=== PATIENT | male | born 1985 | race American Indian/Alaskan Native ===

== ENCOUNTER 2017-03-15 15:30 | Emergency (ER) | payer MEDICAID, OTHER ==
[2017-03-15 15:45] VITALS: BMI 17.1
[2017-03-15 15:46] VITALS: BP 111/64; PULSE 79; TEMP 98.8; O2SAT 99
[2017-03-15] MEDS ORDERED: Amoxicillin-Clav 875-125 mg Tab PO STA (16:12)
--- NOTE | 2017-03-15 16:15 | C.PDOC ---
History Of Present Illness 31 yo male come in for evaluation of malaise, sore throat, difficulty swallow developed since last night. Otherwise, pt denies fever, chills, headache, dizziness, drooling, stridor, cough, SOB, wheezing, abd. pain, N/V/D, back pain , denies recent travel or sick contact. Ambulate to Ed for evaluation, not in any apparent distress. Time Seen by Provider: 03/15/17 16:04 Chief Complaint (Nursing): ENT Problem History Per: Patient Onset/Duration Of Symptoms: Gradual Past Medical History Reviewed: Historical Data, Nursing Documentation, Vital Signs Vital Signs: Last Vital Signs Temp 98.8 F 03/15/17 15:45 Pulse 79 03/15/17 15:45 Resp 20 03/15/17 16:28 BP 111/64 03/15/17 15:45 Pulse Ox 99 03/15/17 16:21 - Medical History PMH: No Chronic Diseases Surgical History: No Surg Hx Family History: States: No Known Family Hx - Social History Hx Tobacco Use: Yes Hx Alcohol Use: Yes Hx Substance Use: No - Immunization History Hx Tetanus Toxoid Vaccination: No Hx Influenza Vaccination: No Hx Pneumococcal Vaccination: No Review Of Systems Except As Marked, All Systems Reviewed And Found Negative. Constitutional: Positive for: Malaise. Negative for: Fever, Chills ENT: Positive for: Nose Congestion, Throat Pain, Throat Swelling. Negative for : Ear Discharge, Nose Discharge Respiratory: Negative for: Cough, Shortness of Breath, Wheezing Gastrointestinal: Negative for: Nausea, Vomiting, Abdominal Pain, Diarrhea Genitourinary: Negative for: Dysuria Musculoskeletal: Negative for: Neck Pain Skin: Negative for: Rash Neurological: Negative for: Weakness, Numbness, Altered Mental Status, Headache , Dizziness Physical Exam - Physical Exam Appears: Well, No Acute Distress Skin: Normal Color, Warm, Dry, No Rash Eye(s): bilateral: PERRL Ear(s): Bilateral: Normal Nose: No Flaring, Other (B/L nasal congestion) Oral Mucosa: Moist, No Drooling Tongue: Normal Appearing Lips: Normal Appearing Throat: Erythema (moderate with mild edema), No Exudate, No Drooling, Other ( Left tonsilar edema and erythema with scant exudate. Uvula midline, no edema.) Neck: Supple Cardiovascular: Rhythm Regular Respiratory: No Stridor, No Wheezing Gastrointestinal/Abdominal: Soft, No Tenderness, No Distention, No Guarding Back: No CVA Tenderness Extremity: No Pedal Edema, No Deformity Neurological/Psych: Oriented x3, Normal Speech ED Course And Treatment O2 Sat by Pulse Oximetry: 99 Pulse Ox Interpretation: Normal Progress Note: On re-evaluation, pt is afebrile, hemodynamicaly stable. NOn- toxic. Tolerate Po well in ED. Pulse Ox 99% RA. neck: (-) meningeal sign. ENT : exam c/w acute tonsillitis. uvula midline, no edema. Lungs: CTA B/L, BS equal B/L. Abd: benign. Pt advised and ref. to F/u with PMD, ENT in 2-3 days for re-eavl. return if any new changes. Disposition Counseled Patient/Family Regarding: Diagnosis, Need For Followup, Rx Given - Disposition Referrals: [facility] at [facility] [Outside] Gavin Anna MD [Staff Provider] - Disposition: HOME/ ROUTINE Disposition Time: 16:19 Condition: STABLE Additional Instructions: Encourage fluids Warm salty water throat gurgles Take medication as prescribed Follow up with PMD, ENT in 2-3 days for re-evaluation. return to ED if any worsening or new changes. Prescriptions: Amoxicillin/Clavulanate [Augmentin 875 MG-125 MG] 1 tab PO BID #14 tab Ibuprofen [Motrin] 1 tab PO TID PRN #30 tab PRN Reason: Pain Prednisone [Deltasone] 20 mg PO DAILY #3 tablet Instructions: Pharyngitis (ED) - Clinical Impression Clinical Impression: Tonsillitis
[2017-03-15] MEDS ORDERED: Amoxicillin-Clav 875-125 mg Tab PO ONE (16:23)
[2017-03-15 16:29] VITALS: RESP 20
== END 2017-03-15 16:28 | disposition home or self-care (01) ==
LOC: C.ER 15:30
DX: J03.90 Acute tonsillitis, unspecified (principal)

== ENCOUNTER 2017-07-25 17:38 | Emergency (ER) | payer MEDICAID, OTHER ==
[2017-07-25 17:38] VITALS: BMI 17.1
--- NOTE | 2017-07-25 18:16 | C.PDOC ---
History Of Present Illness 31 year old male, with no significant PMHx, presents to the ED for evaluation of right-sided chest and back pain which began last night. Patient states his symptoms are constant and worse with movement, deep inspiration and when coughing. Patient also reports shortness of breath on exertion. Today, patient developed fever and generalized body aches and presents for further evaluation. Patient denies recent trauma/injury, nausea, extremity numbness/weakness. Time Seen by Provider: 07/25/17 17:53 Chief Complaint (Nursing): Chest Pain History Per: Patient History/Exam Limitations: no limitations Onset/Duration Of Symptoms: Hrs Current Symptoms Are (Timing): Still Present Quality: "Pain" Associated Symptoms: denies: Nausea Exacerbating Factors: Movement, Deep Breathing, Exertion, Other (cough) Additional History Per: Patient Past Medical History Reviewed: Historical Data, Nursing Documentation, Vital Signs Vital Signs: Last Vital Signs Temp 99.1 F 07/25/17 22:42 Pulse 78 07/25/17 22:42 Resp 18 07/25/17 22:42 BP 97/56 L 07/25/17 22:42 Pulse Ox 97 07/25/17 22:42 - Medical History PMH: No Chronic Diseases Surgical History: No Surg Hx Family History: States: Unknown Family Hx - Social History Hx Tobacco Use: Yes Hx Alcohol Use: Yes Hx Substance Use: No - Immunization History Hx Tetanus Toxoid Vaccination: No Hx Influenza Vaccination: No Hx Pneumococcal Vaccination: No Review Of Systems Constitutional: Positive for: Fever Cardiovascular: Positive for: Chest Pain (right-sided) Respiratory: Positive for: SOB with Excertion Gastrointestinal: Negative for: Nausea Musculoskeletal: Positive for: Back Pain (right-sided), Other (generalized body aches ) Neurological: Negative for: Weakness, Numbness Physical Exam - Physical Exam Appears: Non-toxic, No Acute Distress Skin: Normal Color, Warm, Dry Head: Atraumatic, Normacephalic Eye(s): bilateral: Normal Inspection Oral Mucosa: Moist Neck: Supple Chest: Symmetrical, No Deformity, No Tenderness Cardiovascular: Rhythm Regular, No Murmur, Other (tachycardia ) Respiratory: Normal Breath Sounds, No Rales, No Rhonchi, No Wheezing Back: Normal Inspection, No Vertebral Tenderness, No Paraspinal Tenderness Extremity: Normal ROM, Capillary Refill (less than 2 seconds ) Neurological/Psych: Oriented x3, Normal Speech, Normal Cognition Gait: Steady ED Course And Treatment - Laboratory Results Result Diagrams: 07/25/17 18:25 07/25/17 18:25 Lab Interpretation: Normal (Rapid flu negative) ECG: Interpreted By Me ECG Rhythm: Sinus Rhythm, Nonspecific Changes ECG Interpretation: No Acute Changes O2 Sat by Pulse Oximetry: 98 (on RA) Pulse Ox Interpretation: Normal - Radiology CXR: Interpreted by Me CXR Interpretation: Yes: No Acute Disease - CT Scan/US CT Angio Chest Other Rad Studies (CT/US): Interpreted By Me, Read By Radiologist, Radiology Report Reviewed CT/US Interpretation: EXAM: CT Angiography Chest With Intravenous Contrast. CLINICAL HISTORY: 31 years old, male; Signs and symptoms; Other: Chest pain; Additional info: Chest pain with fever. TECHNIQUE: Axial computed tomographic angiography images of the chest with intravenous contrast using. pulmonary embolism protocol. All CT scans at this facility use one or more dose reduction. techniques, viz.: automated exposure control; ma/kV adjustment per patient size (including targeted. exams where dose is matched to indication; i.e. head); or iterative reconstruction technique. MIP reconstructed images were created and reviewed. Coronal and sagittal reformatted images were created and reviewed. CONTRAST: 100 mL of VISIPAQUE 320 administered intravenously. COMPARISON: No relevant prior studies available. FINDINGS: Pulmonary arteries: No pulmonary embolism. Aorta: No thoracic aortic aneurysm. Lungs: No mass. No consolidation. Pleural spaces: No significant effusion. No pneumothorax. Heart: No cardiomegaly. No significant pericardial effusion. No evidence of right heart dysfunction. Bones: No acute fracture. Lymph nodes : No pathologically enlarged lymph nodes. IMPRESSION: No pulmonary embolism. The lungs are clear. Progress Note: Bloodwork, CXR, EKG, ordered and reviewed. 9:30 Patient spiked fever to 102.9. BP 96/56. Tylenol, IV fluids ordered. Reevaluation Time: 22:04 Reassessment Condition: Improved (better after Tylenol and fluid. Lungs remain clear and he has no respiratory symptoms.) Disposition Counseled Patient/Family Regarding: Studies Performed, Diagnosis, Need For Followup - Disposition Referrals: [facility] at [facility] [Outside] Disposition: HOME/ ROUTINE Disposition Time: 22:46 Condition: IMPROVED Instructions: Fever in Adults (ED), Noncardiac Chest Pain (ED) Forms: [employer] (Andorran) - Clinical Impression Clinical Impression: Pleuritic pain, Fever - Scribe Statement The provider has reviewed the documentation as recorded by the Scribe (Emily Morel) Provider Attestation: All medical record entries made by the Scribe were at my direction and personally dictated by me. I have reviewed the chart and agree that the record accurately reflects my personal performance of the history, physical exam, medical decision making, and the department course for this patient. I have also personally directed, reviewed, and agree with the discharge instructions and disposition.
[2017-07-25 18:32] LABS: BASO # 0.1 K/uL (0.0-0.2); EOS # 0.3 K/uL (0.0-0.7); EOS % 3.4 % (0.0-4.0); HEMATOCRIT 44.4 % (35.0-51.0); LYMPH % 10.2 % (20.0-40.0); MEAN CORPUSCULAR HEMOGLOBIN 28.4 pg (27.0-31.0); MEAN CORPUSCULAR HGB CONC 33.4 g/dL (33.0-37.0); MEAN PLATELET VOLUME 8.7 fL (7.2-11.7); MONO % 10.5 % (0.0-10.0); RED CELL DISTRIBUTION WIDTH 13.8 % (11.5-14.5)
[2017-07-25 18:35] LABS: MEAN CELL VOLUME 85.1 fL (80.0-94.0); WHITE BLOOD COUNT 9.4 K/uL (4.8-10.8)
[2017-07-25 18:40] LABS: CHLORIDE 99 mmol/L (98-107); POTASSIUM 5.1 mmol/L (3.6-5.2); SODIUM 133 mmol/L (132-148)
[2017-07-25 18:42] LABS: BILIRUBIN,TOTAL 0.7 mg/dL (0.2-1.3); CARBON DIOXIDE 25 mmol/L (22-30); GFR AFRICAN-AMERICAN > 60
[2017-07-25 18:43] LABS: ALB/GLOB RATIO 1.1 (1.0-2.1); ALKALINE PHOSPHATASE 68 U/L (38-126); ALT/SGPT 34 U/L (21-72); AST/SGOT 31 U/L (17-59); BLOOD UREA NITROGEN 9 mg/dL (9-20); CALCIUM 9.3 mg/dl (8.6-10.4); GLUCOSE,RANDOM 75 mg/dL (75-110); TOTAL PROTEIN 8.5 g/dL (6.3-8.3)
[2017-07-25] MEDS ORDERED: Iodixanol 320 MG/ML 200 ML BOTTLE IV ONE (19:48)
--- NOTE | 2017-07-25 21:31 | CT ---
EXAM: CT Angiography Chest With Intravenous Contrast CLINICAL HISTORY: 31 years old, male; Signs and symptoms; Other: Chest pain; Additional info: Chest pain with fever TECHNIQUE: Axial computed tomographic angiography images of the chest with intravenous contrast using pulmonary embolism protocol. All CT scans at this facility use one or more dose reduction techniques, viz.: automated exposure control; ma/kV adjustment per patient size (including targeted exams where dose is matched to indication; i.e. head); or iterative reconstruction technique. MIP reconstructed images were created and reviewed. Coronal and sagittal reformatted images were created and reviewed. CONTRAST: 100 mL of VISIPAQUE 320 administered intravenously. COMPARISON: No relevant prior studies available. FINDINGS: Pulmonary arteries: No pulmonary embolism. Aorta: No thoracic aortic aneurysm. Lungs: No mass. No consolidation. Pleural spaces: No significant effusion. No pneumothorax. Heart: No cardiomegaly. No significant pericardial effusion. No evidence of right heart dysfunction. Bones: No acute fracture. Lymph nodes: No pathologically enlarged lymph nodes. IMPRESSION: No pulmonary embolism. The lungs are clear.
[2017-07-25 21:34] VITALS: RESP 18
[2017-07-25] MEDS ORDERED: Sodium Chloride 0.9% 1,000 ML ONE (21:38)
[2017-07-25] MEDS ORDERED: Sodium Chloride 0.9% 1,000 ML IV ONE (21:40)
[2017-07-25 22:43] VITALS: BP 97/56; PULSE 78; TEMP 99.1
[2017-07-25 22:48] VITALS: O2SAT 98
--- NOTE | 2017-07-26 09:00 | RAD ---
HISTORY: Pneumonia COMPARISON: 06/24/2015 TECHNIQUE: Chest PA and lateral FINDINGS: LUNGS: No active pulmonary disease. PLEURA: No significant pleural effusion identified. No pneumothorax apparent. CARDIOVASCULAR: Normal. OSSEOUS STRUCTURES: No significant abnormalities. VISUALIZED UPPER ABDOMEN: Normal. OTHER FINDINGS: None. IMPRESSION: No active disease.
== END 2017-07-25 22:58 | disposition home or self-care (01) ==
LOC: C.ER 17:38
DX: R07.81 Pleurodynia (principal); R50.9 Fever, unspecified
CPT/HCPCS: 71020; 71275; 80053; 85025; 85378; 87040; 87804; 96360; 99285; J7040; Q9966

== ENCOUNTER 2018-03-01 16:50 | Emergency (ER) | payer SELFPAY ==
[2018-03-01 16:50] VITALS: BMI 17.1
[2018-03-01 17:04] VITALS: RESP 16; O2SAT 100
--- NOTE | 2018-03-01 18:38 | C.PDOC ---
History Of Present Illness 32 y/o male presents to the ED for evaluation of a "breakout" to his hands which began 2 days ago. He notes the area was initially painful, but has now progressed to itchiness. Notes it started onhis hands but also notes some on knees and one on chest. Denies anyone else in the household having similar rash. 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 No known allergens including food or medication. He denies fever, difficulty breathing, difficulty swallowing, lip or tongue swelling, fever, or n/v. Patient applied hydrocortisone cream with no relief. Time Seen by Provider: 03/01/18 17:44 Chief Complaint (Nursing): Abnormal Skin Integrity History Per: Patient History/Exam Limitations: no limitations Onset/Duration Of Symptoms: Days Current Symptoms Are (Timing): Still Present Quality Of Symptoms: Itching Additional History Per: Patient Past Medical History Reviewed: Historical Data, Nursing Documentation, Vital Signs Vital Signs: Last Vital Signs Temp 98.4 F 03/01/18 18:54 Pulse 70 03/01/18 18:54 Resp 16 03/01/18 18:54 BP 116/64 03/01/18 18:54 Pulse Ox 100 03/01/18 20:29 - Medical History PMH: No Chronic Diseases Surgical History: No Surg Hx Family History: States: Unknown Family Hx - Social History Hx Tobacco Use: Yes Hx Alcohol Use: Yes Hx Substance Use: No - Immunization History Hx Tetanus Toxoid Vaccination: No Hx Influenza Vaccination: No Hx Pneumococcal Vaccination: No Physical Exam - Physical Exam Appears: Non-toxic, No Acute Distress Skin: Warm, Dry, Other (skin-colored macules and papules primarlily on right hand though one to chest, two to right knee. no erythema, vesicles, urticaria, or discharge) Head: Atraumatic, Normacephalic Eye(s): bilateral: Normal Inspection, EOMI Nose: Normal Oral Mucosa: Moist Tongue: No Swelling Lips: No Swelling Throat: Normal, No Erythema, No Exudate, No Drooling Neck: Normal ROM, Supple Chest: Symmetrical, No Deformity, No Tenderness Cardiovascular: Rhythm Regular Respiratory: Normal Breath Sounds, No Rales, No Rhonchi, No Wheezing Extremity: Normal ROM, Capillary Refill (less than 2 seconds ) Neurological/Psych: Oriented x3, Normal Speech, Normal Cognition Gait: Steady ED Course And Treatment O2 Sat by Pulse Oximetry: 100 (on RA) Pulse Ox Interpretation: Normal Progress Note: Benadryl PO administered. On re-evaluation, patient is resting comfortably, tolerating PO, has no shortness of breath, has no intra-oral swelling, no stridor. Patient notes that pruritus has improved.. Patient was advised to avoid potential allergens. Discussed with pt possible ddx and instructed to follow up with bridge toll collector in 1-2 days. Case discussed and pt evaluated by Dr Brewer, agreed upon plan and discharge. Disposition - Disposition Referrals: [facility] at [facility] [Outside] Disposition: HOME/ ROUTINE Disposition Time: 18:36 Condition: STABLE Additional Instructions: Follow up with the clinic in 1-2 days. Return to ER if symptoms persist or worsen. Prescriptions: DiphenhydrAMINE [Benadryl] 25 mg PO Q6 #20 cap Instructions: Skin Rash (DC) Forms: [employer] (Danish) - Clinical Impression Clinical Impression: Rash - PA / SENIOR PROJECT MANAGER ENGINEERING / Resident Statement MD/DO has reviewed & agrees with the documentation as recorded. - Scribe Statement The provider has reviewed the documentation as recorded by the Scribe (Emily Morel) All medical record entries made by the Scribe were at my direction and personally dictated by me. I have reviewed the chart and agree that the record accurately reflects my personal performance of the history, physical exam, medical decision making, and the department course for this patient. I have also personally directed, reviewed, and agree with the discharge instructions and disposition.
[2018-03-01 18:54] VITALS: BP 116/64; PULSE 70; TEMP 98.4
== END 2018-03-01 18:55 | disposition home or self-care (01) ==
LOC: C.ER 16:50
DX: R21 Rash and other nonspecific skin eruption (principal)

== ENCOUNTER 2018-10-19 10:33 | Emergency (ER) | payer OTHER ==
[2018-10-19 10:33] VITALS: BMI 17.1
[2018-10-19 10:47] VITALS: RESP 18
--- NOTE | 2018-10-19 11:44 | C.PDOC ---
History Of Present Illness 32 year old male presents to the emergency department with complaints of headache, fever, and chills since last night. Patient denies cough, runny nose, sore throat, abdominal pain, diarrhea, and sick contact. Time Seen by Provider: 10/19/18 11:02 Chief Complaint (Nursing): Flu-like Symptoms History Per: Patient History/Exam Limitations: no limitations Onset/Duration Of Symptoms: Days (1) Current Symptoms Are (Timing): Still Present Quality Of Discomfort: Aching, "Pain" Associated Symptoms: Fever, Chills, Nausea, Vomiting. denies: Diarrhea, Other (runny nose, sore throat, abdominal pain, diarrhea) Past Medical History Reviewed: Historical Data, Nursing Documentation, Vital Signs Vital Signs: Last Vital Signs Temp 100.9 F H 10/19/18 10:45 Pulse 102 H 10/19/18 10:45 Resp 18 10/19/18 10:45 BP 111/72 10/19/18 10:45 Pulse Ox 97 10/19/18 10:45 - Medical History PMH: No Chronic Diseases Surgical History: No Surg Hx Family History: States: No Known Family Hx - Social History Hx Tobacco Use: Yes Hx Alcohol Use: Yes Hx Substance Use: No - Immunization History Hx Tetanus Toxoid Vaccination: No Hx Influenza Vaccination: No Hx Pneumococcal Vaccination: No Review Of Systems Constitutional: Positive for: Fever, Chills ENT: Negative for: Nose Discharge (rhinorrhea), Throat Pain Gastrointestinal: Positive for: Nausea, Vomiting. Negative for: Abdominal Pain, Diarrhea Physical Exam - Physical Exam Appears: Non-toxic, In Acute Distress (uncomfortable) Skin: Normal Color, Warm, Dry Head: Atraumatic, Normacephalic Eye(s): bilateral: Normal Inspection, PERRL, EOMI Nose: Normal Oral Mucosa: Moist Throat: Normal, No Erythema, No Exudate Neck: Normal, Supple Chest: Symmetrical, No Tenderness Cardiovascular: Rhythm Regular (tachycardic), No Murmur Respiratory: Normal Breath Sounds, No Rales, No Rhonchi, No Wheezing Gastrointestinal/Abdominal: Soft, No Tenderness Neurological/Psych: Oriented x3, Normal Speech, Normal Cognition ED Course And Treatment O2 Sat by Pulse Oximetry: 97 (RA) Pulse Ox Interpretation: Normal Progress Note: Plan: Motrin 600mg PO. Zofran 4mg PO. PO Challenge. Influenza Swab Disposition Counseled Patient/Family Regarding: Diagnosis, Need For Followup, Rx Given - Disposition Referrals: [facility] at [facility] [Outside] Disposition: HOME/ ROUTINE Disposition Time: 12:40 Condition: STABLE Additional Instructions: FOLLOW UP WITH YOUR DOCTOR/CLINIC IN 1-2 DAYS USE MEDICATIONS DIRECTED DRINK PLENTY OF FLUIDS AND GET REST RETURN TO ER IF SYMPTOMS WORSEN Prescriptions: Naproxen 375 mg PO BID PRN #20 tablet PRN Reason: pain Ondansetron ODT [Zofran ODT] 1 odt PO BID PRN #15 odt PRN Reason: Nausea/Vomiting Oseltamivir Phosphate [Tamiflu] 75 mg PO BID #10 capsule Instructions: Viral Syndrome (DC) Forms: [employer] (Colombian), Work Excuse Print Language: CANADIAN - Clinical Impression Clinical Impression: Influenza-like illness, Viral disease - Scribe Statement The provider has reviewed the documentation as recorded by the Scribe (Richard Vivas) Provider Attestation: All medical record entries made by the Scribe were at my direction and personally dictated by me. I have reviewed the chart and agree that the record accurately reflects my personal performance of the history, physical exam, medical decision making, and the department course for this patient. I have also personally directed, reviewed, and agree with the discharge instructions and disposition.
[2018-10-19 13:28] VITALS: BP 100/61; PULSE 74; TEMP 99.4; O2SAT 98
== END 2018-10-19 13:05 | disposition home or self-care (01) ==
LOC: C.ER 10:33
DX: J11.1 Influenza due to unidentified influenza virus with other respiratory manifestations (principal); B34.9 Viral infection, unspecified

== ENCOUNTER 2018-12-08 12:18 | Emergency (ER) | payer OTHER | END 2018-12-08 15:10 | disposition home or self-care (01) | LOC: C.ER 12:18 ==